=== PATIENT | female | born 1940 | race Caucasian/White ===

== ENCOUNTER 2022-12-27 18:56 | Outpatient (NON) | payer MEDICARE, SELFPAY ==
[2022-12-27 19:13] LABS: Add Urine Microscopic? YES; Appearance Urine Clear (Clear); Bilirubin Urine Negative (Negative); Blood Urine Negative (Negative); Color Urine Light Yellow (Yellow); Glucose Urine UA Negative (Negative); Ketones Urine Negative (Negative); Leukocyte Esterase Ur Trace (Negative); Nitrate Urine Negative (Negative); Protein Urine Negative (Negative); Specific Grav Ur 1.025 (1.010-1.020); Urobilinogen Urine 0.2 mg/dL (0.2-1.0); pH Urine 5.5 (5.0-8.0)
[2022-12-27 19:19] LABS: Bacteria Urine Trace /hpf; RBC Urine 0-2 /hpf (0-2); Squamous Epithelial Cell Urine Few /hpf (Few)
[2022-12-27 19:33] LABS: Alanine Aminotransferase 14 U/L (14-59); Alkaline Phosphatase 75 U/L (46-116); Anion Gap 6 mmol/L (8-16); Aspartate Amino Transferase 13 U/L (15-37); Bilirubin,Total 0.4 mg/dL (0.00-1.00); Blood Urea Nitrogen 54 mg/dL (7-18); Calcium 8.7 mg/dL (8.5-10.1); Carbon Dioxide 28 mmol/L (21-32); Chloride 106 mmol/L (98-108); Estimated Glomerular Filt Rate 21; Glucose 207 mg/dL (70-99); Osmolality Calculated 310 mOsm/kg (285-295); Potassium 4.8 mmol/L (3.5-5.1); Sodium 140 mmol/L (136-145); Total Protein 6.7 g/dL (6.4-8.2)
== END 2022-12-27 18:57 | disposition home or self-care (01) ==
LOC: CHSLAB 19:00
PROVIDERS: Family Medicine; Visit Provider Family Medicine
DX: R41.0 Disorientation, unspecified (principal); R53.83 Other fatigue; I50.9 Heart failure, unspecified; N18.9 Chronic kidney disease, unspecified; E11.9 Type 2 diabetes mellitus without complications
CPT/HCPCS: 36415; 80053; 81001; 87086; 87088

== ENCOUNTER 2022-12-28 09:25 | Outpatient (NON) | payer MEDICARE, SELFPAY ==
[2022-12-28 09:50] LABS: Basophils Absolute Auto 0.03 K/mm3 (0.00-0.10); Basophils Percent Auto 0.3 % (0.0-1.0); Eosinophils Percent Auto 2.1 % (1.0-6.0); Hematocrit 28.5 % (35.0-42.0); Hemoglobin 8.6 g/dL (11.7-13.8); Immature Granulocyte Absolute 0.07 K/mm3 (0.00-0.00); Immature Granulocyte Percent A 0.7 % (0.0-0.0); Lymphocytes Percent Auto 8.5 % (18.0-42.0); Mean Corpuscular HGB Conc 30.2 g/dL (32.0-36.0); Mean Corpuscular Hemoglobin 28.3 pg (27.0-31.0); Mean Corpuscular Volume 93.8 fL (78.0-102.0); Mean Platelet Volume 11.5 fl (9.2-11.8); Monocytes Absolute Auto 0.93 K/mm3 (0.10-0.90); Monocytes Percent Auto 9.9 % (2.0-11.0); Neutrophils Absolute Auto 7.4 K/mm3 (1.7-7.2); Neutrophils Percent Auto 78.5 % (50.0-70.0); Platelet Count Result 204 K/mm3 (150-420); Red Blood Count 3.04 M/mm3 (4.20-5.40); Red Cell Distribution Width 16.3 % (11.6-14.4); White Blood Count 9.4 K/mm3 (4.8-10.8)
== END 2022-12-28 09:26 | disposition home or self-care (01) ==
LOC: CHSLAB 09:30
PROVIDERS: Visit Provider Family Medicine
DX: R41.0 Disorientation, unspecified (principal); R53.83 Other fatigue; I50.9 Heart failure, unspecified; N18.9 Chronic kidney disease, unspecified; E11.9 Type 2 diabetes mellitus without complications
CPT/HCPCS: 36415; 85025